=== PATIENT | female | born 1975 | race Caucasian/White ===

== ENCOUNTER → 2023-05-06 11:27 | Outpatient (CLI) | payer OTHER, SELFPAY ==
--- NOTE | ~2023-05-06 | MM_ITS ---
EXAMINATION: MM screening [facility] BI w crystal HISTORY: Screening mammogram TECHNIQUE: Craniocaudal and mediolateral oblique 3-D tomosynthesis images were obtained and synthetic 2-D images were generated. CAD analysis was submitted and interpreted. COMPARISON: 03/26/2019, 04/02/2018 BREAST PARENCHYMAL COMPOSITION: The breasts are extremely dense, which lowers the sensitivity of mamm ography. FINDINGS: No suspicious mass, calcification, or architectural distortion are identified in either dionna ast to suggest malignancy. There has been no suspicious interval change. IMPRESSION: 1. No mammographic evidence of malignancy. 2. Recommend routine screening mammography in one year. BI-RADS Category 1: Negative Reviewed, dictated and finalized at location A.
== END ==
PROVIDERS: PCP Obstetrics & Gynecology; Visit Provider Obstetrics & Gynecology
DX: Z12.31 Encounter for screening mammogram for malignant neoplasm of breast (principal)
CPT/HCPCS: 77063; 77067

== ENCOUNTER 2024-12-06 11:09 | Emergency (ER) | payer SELFPAY ==
[2024-12-06 11:24] VITALS: BP 112/69; PULSE 80; RESP 16; TEMP 36.3; O2SAT 100
--- NOTE | 2024-12-06 11:36 | ED.URI ---
HPI - URI/Sore Throat General Chief Complaint: Upper Respiratory Infection Stated Complaint: Fever/Sore Throat/Body aches Time Seen by Provider: 12/06/24 11:30 Source: patient Mode of arrival: ambulatory Limitations: no limitations History of Present Illness HPI Narrative: Christa is a 49-year-old female patient presenting to the clinic today with complaints of fever, sore throat, body aches, chills, and nasal drainage but symptoms been going on for 3 days. Denies any chest pain or shortness of breath. Fevers high as 99? F. MD elicited complaint: sore throat and nasal congestion Related Data Home Medications ?Medication ?Instructions ?Recorded ?Confirmed ?Last Taken ?Type progesterone micronized 100 mg 100 mg PO QPM 12/06/24 12/06/24 Unknown History capsule Allergies Allergy/AdvReac Type Severity Reaction Status Date / Time No Known Allergies Allergy Verified 12/06/24 11:16 Review of Systems Review of Systems: Pertinent positives per HPI. Patient denies any rash, headache, visual changes, dizziness, cough, shortness of breath, chest pain, palpitations, nausea, vomiting, diarrhea, constipation, abdominal pain, or any urinary issues. PMFSH Comments At the time of my signature, I reviewed and agree with the nursing past medical, surgical, social, and family history. There is no relevant family history pertinent to the patient complaint. Exam Narrative: General: Well-developed, well nourished, in no apparent distress Head: Normocephalic, atraumatic Eyes: Pupils equally round and reactive to light bilaterally, EOM intact, sclera and conjunctive clear, no discharge, lids normal Ears: TMs intact and clear, ear canals clear, no drainage, grossly hearing normal. Nose: Nares patent, clear nasal discharge, no inflammation, no sinus tenderness. Mouth: Oral pharynx red without lesions or masses, good dentition, MMM. PND Neck: Supple, trachea midline, no enlargement of anterior or posterior cervical nodes, no thyroid masses or goiter palpable. Cardio: Regular rate and rhythm, s1 and s2 normal, no murmur appreciated. Resp: Clear to auscultation bilaterally, no rhonchi, rales, wheezing or rubs Course Course Emergency Course: Portions of this record may have been created with voice recognition software. Level of Care: Express Care Visit Vital Signs Vital signs: Vital Signs Temperature 36.3 C L 05/02/25 11:24 Pulse Rate 80 12/06/24 11:24 Respiratory Rate 16 12/06/24 11:24 Blood Pressure 112/69 12/06/24 11:24 Pulse Oximetry 100 12/06/24 11:24 Temperature 36.3 C L 12/06/24 11:24 Pulse Rate 80 12/06/24 11:24 Respiratory Rate 16 12/06/24 11:24 Blood Pressure 112/69 12/06/24 11:24 Pulse Oximetry 100 12/06/24 11:24 Vital signs reviewed MDM - URI/Sore Throat MDM Narrative Medical decision making narrative: At the time of visit patient is resting comfortably on the exam table. Patient appears to be nontoxic. Labs: Influenza testing was positive for influenza B, strep test was negative. We will send strep for culture. Plan: I suspect patient has Influenza B. Supportive measures were discussed with the patient and they voiced understanding discharge instructions and agrees to treatment plan. Return precautions reviewed Differential Diagnosis Differential diagnosis: Likely upper respiratory infection, otitis media, sinusitis, viral infection, bronchitis, influenza, pharyngitis and other (Covid) Discharge Plan Discharge Clinical Impression: Influenza B Patient Disposition: Home Condition: Stable Instructions: Antibiotic Form, Influenza (ED) Additional Instructions: Influenza B testing was positive in the clinic today. Strep test was negative in the clinic today. We will send strep for culture May take DayQuil/NyQuil for /flu symptoms Increase fluids and stay well hydrated Tylenol/motrin for pain/fever Flonase and OTC antihistamines as directed Vicks vapor rub to open sinuses Sinus rinses for congestion Cepacol spray, cough drops, throat lozenges, warm tea with honey/lemon, gargle salt water to soothe throat BRAT diet for diarrhea Clear liquids x 24 hours then advance as tolerated for nausea/vomiting Go to the ED if you develop a worsening in your condition- high fever not controlled by Tylenol or Motrin, dehydration, weakness, lethargy, shortness of breath, or chest pain. Follow up with your PCP in 3-5 days if symptoms persist. Patient Language: Armenian Prescriptions: No Action progesterone micronized 100 mg capsule 100 mg PO QPM Follow-up/Referrals: PHYSICIAN,SHARPLES MACHINE OPERATOR [Primary Care Provider] - Time of Disposition: 11:32 Quality NIHSS Nursing Documentation ED NIHSS nursing documentation: reviewed/agree
[2024-12-06 11:47] LABS: EDINFLUASCREEN Negative (Negative); EDINFLUBSCREEN Positive (Negative); EDSTREPNEGPOS1 Negative (Negative)
== END 2024-12-06 11:38 | disposition home or self-care (01) ==
PROVIDERS: Emergency Provider Nurse Practitioner Family
DX: J10.1 Influenza due to other identified influenza virus with other respiratory manifestations (principal)
CPT/HCPCS: 87081; 87804; 87880; 99213; G0463

== ENCOUNTER 2025-08-04 16:32 | Emergency (ER) | payer OTHER, SELFPAY ==
--- NOTE | 2025-08-04 16:45 | ED.URI ---
HPI - URI/Sore Throat General Chief Complaint: Upper Respiratory Infection Stated Complaint: Strep Symptoms Time Seen by Provider: 08/04/25 17:30 Source: patient Mode of arrival: ambulatory Limitations: no limitations History of Present Illness HPI Narrative: Christa is a 49-year-old female patient presenting to the clinic today with complaints of sore throat, cough, headache, body aches, feeling feverish, and chills x1 day. Has taken Advil for her symptoms. Denies any chest pain or shortness of breath. MD elicited complaint: sore throat and nasal congestion Related Data Home Medications ?Medication ?Instructions ?Recorded ?Confirmed ?Last Taken ?Type progesterone micronized 100 mg 100 mg PO QPM 12/06/24 08/04/25 Unknown History capsule Allergies Allergy/AdvReac Type Severity Reaction Status Date / Time No Known Allergies Allergy Verified 08/04/25 17:07 Review of Systems Review of Systems: Pertinent positives per HPI. Patient denies any rash,visual changes, dizziness, shortness of breath, chest pain, palpitations, nausea, vomiting, diarrhea, constipation, abdominal pain, or any urinary issues. PMFSH Comments At the time of my signature, I reviewed and agree with the nursing past medical, surgical, social, and family history. There is no relevant family history pertinent to the patient complaint. Exam Narrative: General: Well-developed, well nourished, acutely ill-appearing Head: Normocephalic, atraumatic Eyes: Pupils equally round and reactive to light bilaterally, EOM intact, sclera and conjunctive clear, no discharge, lids normal Ears: TMs intact and clear, ear canals clear, no drainage, grossly hearing normal. Nose: Nares patent, clear discharge, mild inflammation, no sinus tenderness. Mouth: Oral pharynx red without lesions or masses, good dentition, MMM. Postnasal drip Neck: Supple, trachea midline, no enlargement of anterior or posterior cervical nodes, no thyroid masses or goiter palpable. Cardio: Regular rate and rhythm, s1 and s2 normal, no murmur appreciated. Resp: Clear to auscultation bilaterally, no rhonchi, rales, wheezing or rubs Course Course Level of Care: Express Care Visit Vital Signs Vital signs: Vital Signs Temperature 36.7 C 08/04/25 17:21 Pulse Rate 80 08/04/25 17:21 Respiratory Rate 20 08/04/25 17:21 Blood Pressure 120/58 L 08/04/25 17:21 Pulse Oximetry 100 08/04/25 17:21 Oxygen Delivery Room Air 08/04/25 17:21 Temperature 36.7 C 08/04/25 17:21 Pulse Rate 80 08/04/25 17:21 Respiratory Rate 20 08/04/25 17:21 Blood Pressure 120/58 L 08/04/25 17:21 Pulse Oximetry 100 08/04/25 17:21 Oxygen Delivery Room Air 08/04/25 17:21 MDM MDM Narrative Medical decision making narrative: At the time of visit patient is resting comfortably on the exam table. Patient appears to be nontoxic. Complaints of sore throat, cough, headache, body aches, feeling feverish, and chills x1 day. Has taken Advil for her symptoms. Denies any chest pain or shortness of breath. On exam patient has bilateral TMs intact and clear, clear nasal drainage, mild anterior turbinate inflammation, oral pharynx red with postnasal drip, no cervical lymphadenopathy, lung sounds are clear, heart rates regular rate and rhythm. COVID, flu, and strep test were ordered. Labs: COVID, influenza, and strep test were performed. Strep and COVID was negative. Influenza test was positive for influenza A. Plan: Patient has influenza A. Patient is requesting Tamiflu. Side effects were reviewed and patient voiced understanding. Supportive measures were discussed with the patient and they voiced understanding discharge instructions and agrees to treatment plan. Return precautions reviewed Differential Diagnosis Differential Diagnosis: Differential diagnostic considerations for upper respiratory infection include upper respiratory infection, croup, otitis media, sinusitis, viral infection, bronchitis, influenza, pharyngitis, strep, uvulitis. Lab Data Labs: Lab Results 08/04/25 08/04/25 08/04/25 Range/Units 17:16 17: 17:26 POC Influenza A Ag Positive (Negative) POC Influenza B Ag Negative (Negative) POC SARS CoV-2 Ag Negative (Negative) POC Grp A Strep Screen Negative (Negative) Discharge Plan Discharge Clinical Impression: Influenza A Patient Disposition: Home Condition: Stable Instructions: Antibiotic Form, Influenza (ED) Additional Instructions: Influenza A testing is positive in the clinic today. Strep and COVID testing are negative. We will send strep for culture Take prescription medications only as prescribed-Tamiflu Increase fluids and stay well hydrated May take Tylenol or motrin as directed on bottle for pain/fever May use Flonase 1 spray in each nare daily May take OTC antihistamines such as Zyrtec or Claritin daily as directed on bottle May apply Vicks vapor rub to chest to open sinuses Sinus rinses for congestion Cepacol spray, cough drops, throat lozenges, warm tea with honey/lemon, gargle salt water to soothe throat BRAT diet for diarrhea Clear liquids x 24 hours then advance as tolerated for nausea/vomiting Go to the ED if you develop a worsening in your condition- high fever not controlled by Tylenol or Motrin, dehydration, weakness, lethargy, shortness of breath, or chest pain. Follow up with your PCP in 3-5 days if symptoms persist. Patient Language: Lao Prescriptions: New oseltamivir [Tamiflu] 75 mg capsule 75 mg PO Q12H 5 Days Qty: 10 0RF No Action progesterone micronized 100 mg capsule 100 mg PO QPM Follow-up/Referrals: PHYSICIAN,HEAD ATHLETIC TRAINER [Primary Care Provider, Internal Medicine] Time of Disposition: 17:27 Quality NIHSS Nursing Documentation ED NIHSS nursing documentation: reviewed/agree
[2025-08-04 17:18] LABS: EDSTREPNEGPOS1 Negative (Negative)
[2025-08-04 17:21] VITALS: BP 120/58; PULSE 80; RESP 20; TEMP 36.7; O2SAT 100
[2025-08-04 17:27] LABS: EDINFLUASCREEN Positive (Negative); EDINFLUBSCREEN Negative (Negative)
[2025-08-04 17:28] LABS: EDCOVIDSCREEN Negative (Negative)
== END 2025-08-04 17:32 | disposition home or self-care (01) ==
PROVIDERS: Emergency Provider Nurse Practitioner Family
DX: J10.1 Influenza due to other identified influenza virus with other respiratory manifestations (principal); Z20.822 Contact with and (suspected) exposure to COVID-19
CPT/HCPCS: 87081; 87426; 87804; 87880; 99213; G0463